=== PATIENT | female | born 1955 | race Caucasian/White ===

== ENCOUNTER 2021-05-14 18:38 | Emergency (ER) | payer SELFPAY ==
[~2021-05-14] VITALS: Ht 162.6 cm; Wt 101.2 kg
[2021-05-14] MEDS ORDERED: IV NORMAL SALINE 1,000ML 1,000 ML IV ONE (18:45)
[2021-05-14 19:12] LABS: BASO % 1 % (0-3); EOS # 0.1 x10^3/uL (0.0-0.7); EOS % 1 % (0-3); HEMATOCRIT 43.2 % (36.0-47.0); HEMOGLOBIN 14.5 g/dL (12.0-15.5); LYMPH # 1.3 x10^3/uL (1.0-4.8); LYMPH % 18 % (24-48); MEAN CORPUSCULAR HEMOGLOBIN 32 pg (25-35); MEAN CORPUSCULAR HGB CONC 34 g/dL (31-37); MEAN CORPUSCULAR VOLUME 94 fL (79-100); MONO # 0.9 x10^3/uL (0.0-1.1); MONO % 13 % (0-9); NEUT # 4.9 x10^3uL (1.8-7.7); NEUT % 68 % (31-73); PLATELET COUNT 191 x10^3/uL (140-400); RED BLOOD COUNT 4.59 x10^6/uL (3.50-5.40); WHITE BLOOD COUNT 7.2 x10^3/uL (4.0-11.0)
[2021-05-14] MEDS ORDERED: IOHEXOL 350 MG/ML 100 ML VIAL. IV ONE (19:15)
--- NOTE | 2021-05-14 19:17 | RAD ---
Exam: Chest one view INDICATION: Syncope TECHNIQUE: Frontal view of the chest Comparisons: None FINDINGS: The cardiomediastinal silhouette and pulmonary vessels are within normal limits. The lung and pleural spaces are clear. IMPRESSION: No acute cardiopulmonary process. Electronically signed by: Alvarez Rand MD (05/14/2021 7:14 PM) [facility]
[2021-05-14 19:20] LABS: CALCIUM 8.2 mg/dL (8.5-10.1); CREATININE 1.4 mg/dL (0.6-1.0); GFR 37.9; POTASSIUM 4.4 mmol/L (3.5-5.1)
--- NOTE | 2021-05-14 19:27 | PHYS DOC ---
Adult General Chief Complaint Chief Complaint: SYNCOPE HPI HPI Patient is a 65-year-old female with a past medical history of CAD, NC with stents, PAD with femoral stents, CVA, hypertension, hyperlipidemia who presents from home via EMS after syncope. Per family, she was walking through the house, got lightheaded and started to pass out and was caught by family. States she did not fall to the ground, or hit her head. EMS states in route she was hypotensive at 70/30. Blood sugar was normal. Patient denies any recent travel, traumas, fevers, chest pain, shortness of breath, abdominal pain, nausea, vomiting, dysuria, hematuria, blood in the stool or diarrhea. States has been eating and drinking normally for her. States has been making urine and stool normally for her. Does state that she may have taken her blood pressure medicines twice today, on 25 mg of metoprolol. States she occasionally does that. States she did smoke a little marijuana today as well. Does not think there was anything in the marijuana. Review of Systems Review of Systems Review of systems otherwise unremarkable except noted in HPI Current Medications Current Medications Current Medications Medications (Trade) Dose Ordered Sig/Dianne Start Time Stop Time Status Last Admin Dose Admin Sodium Chloride 1,000 ml @ 1,000 mls/hr 1X ONCE 05/14/21 18:45 05/14/21 19:44 Allergies Allergies Allergies Coded Allergies Type Severity Reaction Last Updated Verified No Known Drug Allergies 05/14/21 No Physical Exam Physical Exam Constitutional: Well developed, well nourished, no acute distress, appears pale/ashen HENT: Normocephalic, atraumatic, bilateral external ears normal, oropharynx dry, no oral exudates, nose normal. [] Eyes: PERRLA, EOMI, right-sided hyperemia, no discharge. [] Neck: Normal range of motion, no tenderness, supple, no stridor. [] Cardiovascular:Heart rate regular rhythm, no murmur. EKG with a rate of 84, QRS of 88, QTc of 429, UT interval of 112, no STEMI. [] POC echo with no pericardial effusion, valves appear to be working but left ventricle does appear hypokinetic with grossly decreased ejection fraction Lungs & Thorax: Mild bilateral rhonchi and congestion but no respiratory distress or increased work of breathing Abdomen: Bowel sounds normal, soft, no tenderness, no masses, no pulsatile masses. Fast exam negative [] Skin: Warm, dry, no erythema, no rash. [] Back: No tenderness, no CVA tenderness. [] Extremities: No tenderness, no cyanosis, no clubbing, ROM intact, no edema. [] Neurologic: Alert and oriented X 3, normal motor function, normal sensory function, able to sit, stand and walk without issue, no focal deficits noted. NIH of 0 [] Psychologic: Affect normal, judgement normal, mood normal. [] Current Patient Data Vital Signs Vital Signs Date Time Temp Pulse Resp B/P (MAP) Pulse Ox O2 Delivery O2 Flow Rate FiO2 05/14/21 19:03 86 16 113/53 (73) 95 05/14/21 19:02 97.9 05/14/21 19:00 Room Air EKG EKG [] Radiology/Procedures Radiology/Procedures [] Heart Score C/O Chest Pain: No Risk Factors: Risk Factors: DM, Current or recent (<one month) smoker, HTN, HLP, family history of CAD, obesity. Risk Scores: Risk Factors: DM, Current or recent (<one month) smoker, HTN, HLP, family history of CAD, obesity. Course & Med Decision Making Course & Med Decision Making Patient is a 65-year-old female with significant cardiovascular disease, hypertension on beta-blockers who presents with syncope and hypotension Vital signs notable for hypotension on arrival. Placed on the monitor with 2 IVs placed. Fluid resuscitation begun. Started on epinephrine given probable need for inotrope/pressor. Cardiac pads in place. Blood cultures obtained. Antibiotics started given sepsis is on the differential diagnosis. Also likely is patient accidentally taken too many of her metoprolol today. Laboratory analysis not concerning. EKG with a rate of 84, QRS of 98, QTc of 429, UT 112, no STEMI. Troponin no rmal. Puentes scan from head to pelvis normal. Patient responding well to fluid resuscitation and epinephrine. Discussed all findings with patient recommend admission for continued evaluation and treatment of likely cardiogenic shock with differential beta-blockade versus sepsis versus thyroid versus new or worsening heart failure. Hospitalist accepted to [facility]. Critical care time 1 hour [] Dragon Disclaimer Dragon Disclaimer This electronic medical record was generated, in whole or in part, using a voice recognition dictation system. Departure Departure: Impression: Primary Impression: Syncope Additional Impressions: Hypotension Beta garrett toxicity COPD without exacerbation Disposition: 02 [facility]ORT TERM [facility]OSPITAL Condition: STABLE Problem Qualifiers CLIFF TADEO MD May 14, 2021 19:27
[2021-05-14 19:36] LABS: ALBUMIN/GLOBULIN RATIO 1.1 (1.0-1.7); MAGNESIUM 1.9 mg/dL (1.8-2.4); TOTAL BILIRUBIN 0.3 mg/dL (0.2-1.0); TOTAL PROTEIN 5.7 g/dL (6.4-8.2)
--- NOTE | 2021-05-14 20:13 | RAD ---
Exam: CT of chest, abdomen and pelvis with contrast INDICATION: Shock, passed out, weakness TECHNIQUE: Sequential axial images through the chest, abdomen and pelvis obtained following the admin istration of 90 mL of Isovue-370 IV contrast. Sagittal and coronal reformatted images were reconstruc kevin from the axial data and reviewed. Exposure: One or more of the following in the visualized dose reduction techniques were utilized for this examination: 1. Automated exposure control 2. Adjustment of the MA and/or KV according to patient size 3. Use of iterative of reconstructive technique Comparisons: None FINDINGS: Visual is portions of the thyroid are unremarkable. No enlarged mediastinal lymph nodes. Heart size is normal. No pericardial effusion. Thoracic aorta has normal course and caliber. Pulmonar y artery is not enlarged. Airways are patent. No consolidation or pneumothorax. No suspicious lung nodules. No pleural effusion or thickening. Liver, spleen, pancreas, gallbladder and adrenals are unremarkable. No perinephric inflammation or hydronephrosis. No renal or ureteral calculi are identified. Bladder is partially distended and not well evaluated. Uterus is not enlarged. No abnormal adnexal ma ss. Moderate amount stool is noted in the colon. Appendix is is not identified. No free intra-abdominal a ir or fluid. No obstruction. Abdominal aorta has a normal course and caliber. Bowel vasculature is patent. No enlarged intra-abdominal lymph nodes are identified. IMPRESSION: No acute process identified within the abdomen or pelvis. Electronically signed by: Alvarez Rand MD (05/14/2021 8:11 PM) [facility]
--- NOTE | 2021-05-14 20:14 | RAD ---
CT Head W/O Contrast: History: Reason: ams, passed out, weakness / Spl. Instructions: / History: Comparison: none Axial images were obtained without contrast. Right frontoparietal lobe and cephalization is consistent with a old moderate sized stroke. There is mild diffuse atrophy. There is no mass effect, extraaxial fluid collections or hydrocephalus. There is no focal loss of licona-white matter distinction to suggest acute ischemia, i.e. stroke. Impression: Old stroke on the right. No acute findings. End of impression CT C-Spine without contrast: Clinical History: Pain status post fall Technique: Axial helical images of the cervical spine were obtained without contrast, axial coronal and sagittal reconstruction was performed. Findings: There is no loss of vertebral body stature. There is no prevertebral soft tissue swelling. The vert ebral bodies are well aligned. The C1-C2 relationship is normal. The visualized osseous structures a ppear normal. Evaluation of the central canal is limited without contrast. There is discogenic disease. Diffuse cervical disc bulges and hypertrophy of the facets result in fla ttening of the thecal sac at multiple levels. There are does not appear to be gross flattening the co rd. There is moderate narrowing multiple neuroforamen. Impression: No acute findings. Clinical correlation suggested. PQRS Compliance Statement: One or more of the following individualized dose reduction techniques were utilized for this examinat ion: 1. Automated exposure control 2. Adjustment of the mA and/or kV according to patient size 3. Use of iterative reconstruction technique Electronically signed by: Brooks Camarillo III, MD (05/14/2021 8:12 PM) [facility]
[2021-05-14 21:27] LABS: AMPHETAMINE/METHAMPHETAMINE NEG (NEG); BARBITURATES NEG (NEG); BENZODIAZEPINES NEG (NEG); CANNABINOIDS NEG (NEG); COCAINE NEG (NEG); METHADONE NEG (NEG); OPIATES POS (NEG); PHENCYCLIDINE NEG (NEG)
[2021-05-14 21:29] VITALS: BP 104/50
[2021-05-14 21:29] LABS: CLARITY,URINE CLEAR; COLOR,URINE YELLOW; GLUCOSE,URINE NEG (NEG)
[2021-05-14 21:30] LABS: BACTERIA,URINE MOD /HPF (0-FEW); NITRITE,URINE NEG (NEG); SQUAMOUS EPITHELIAL CELL,UR MOD /LPF; UROBILINOGEN,URINE 0.2 mg/dL (0.2 mg/dL)
[2021-05-14] MEDS ORDERED: NORMAL SALINE IV PRN (22:00)
[2021-05-14] MEDS ORDERED: EPINEPHRINE IV PRN (22:00)
[2021-05-14] MEDS ORDERED: CONTRAST GIVEN. MC PRN (22:00)
--- NOTE | 2021-05-15 01:39 | EKG ---
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
== END 2021-05-14 22:02 | disposition short-term general hospital (02) ==
LOC: ER 18:38
DX: R55 Syncope and collapse (principal); J44.9 Chronic obstructive pulmonary disease, unspecified; I95.9 Hypotension, unspecified; Z20.822 Contact with and (suspected) exposure to COVID-19
CPT/HCPCS: 36415; 70450; 71045; 71275; 72125; 74174; 74175; 80053; 80307; 81001; 82803; 83605; 83735; 84484; 85025; 85379; 85610; 85730; 86140; 86850; 86900; 86901; 87040; 87086; 87426; 93005; 96365; 99291; C9803; J1956; Q9967; U0003